=== PATIENT | male | born 1955 | race Two or more races ===

== ENCOUNTER 2018-04-02 13:37 | Emergency (ER) | payer MEDICARE, OTHER ==
[~2018-04-02] VITALS: Ht 160 cm; Wt 75.0 kg
[2018-04-02 13:55] VITALS: BP 140/53
[2018-04-02] MEDS ORDERED: acetaminophen 325mg tablet PO ONE (15:15)
[2018-04-02] MEDS ORDERED: bacitracin 15gm ointment TP ONE (15:15)
[2018-04-02] MEDS ORDERED: TETanus/Pertussis (Acell)/Diphther VAC/PF (Tdap-Adult) 0.5ml syringe IM ONE (15:15)
== END 2018-04-02 16:52 | disposition home or self-care (01) ==
LOC: ER 13:38
DX: S61.210A Laceration without foreign body of right index finger without damage to nail, initial encounter (principal); S61.212A Laceration without foreign body of right middle finger without damage to nail, initial encounter; S61.214A Laceration without foreign body of right ring finger without damage to nail, initial encounter; W27.8XXA Contact with other nonpowered hand tool, initial encounter; S61.216A Laceration without foreign body of right little finger without damage to nail, initial encounter; Z86.73 Personal history of transient ischemic attack (TIA), and cerebral infarction without residual deficits; Y93.89 Activity, other specified; Y92.89 Other specified places as the place of occurrence of the external cause; Y99.9 Unspecified external cause status
CPT/HCPCS: 12002; 90471; 90715; 99284

== ENCOUNTER 2018-12-07 06:53 | Emergency (ER) | payer MEDICARE ==
[~2018-12-07] VITALS: Ht 172.7 cm; Wt 79.8 kg
--- NOTE | 2018-12-07 07:07 | NUR ---
PT BEING CHANGED INTO GOWN, ULTRASOUND MACHINE PLACED AT BEDSIDE FOR FAST EXAM, DR TORRES AWARE OF PT.
[2018-12-07] MEDS ORDERED: normal saline 1000ML IV soln IVB ONE ×2 (07:10→10:05)
[2018-12-07] MEDS ORDERED: iohexol 300mg/ml 100ml inj. ONE (07:13)
--- NOTE | 2018-12-07 07:14 | NUR ---
Verbal order obtained from Dr. Nguyen for 4 mg IV zofran once now and 4 mg IV morphine once now. Will place order per MD request.
[2018-12-07] MEDS ORDERED: ondansetron/PF 4mg/2ml inj IV ONE (07:15)
[2018-12-07] MEDS ORDERED: morphine 4 MG/ML inj SYRINge IV ONE (07:15)
[2018-12-07 07:36] LABS: BASOPHILS % (AUTO) 0.2 % (0-1); EOSINOPHILS % (AUTO) 0.3 % (0-6); HEMATOCRIT 37.1 % (42.0-52.0); HEMOGLOBIN 12.4 g/dl (14.0-17.9); LYMPHOCYTES # (AUTO) 0.7 X10'3 (1.1-4.8); LYMPHOCYTES % (AUTO) 5.5 % (21-51); MEAN CORPUSCULAR HEMOGLOBIN 29.9 PG (27.0-31.0); MEAN CORPUSCULAR HGB CONC 33.3 g/dL (33.0-36.5); MEAN CORPUSCULAR VOLUME 89.7 FL (78-98); MEAN PLATELET VOLUME 7.1 FL (7.4-10.4); MONOCYTES # (AUTO) 0.3 X10'3 (0-0.9); MONOCYTES % (AUTO) 2.3 % (2-12); NEUTROPHILS # (AUTO) 12.2 X10'3 (1.8-7.7); NEUTROPHILS % (AUTO) 91.7 % (42-75); PLATELET COUNT 310 X10'3 (140-440); RED BLOOD COUNT 4.14 X10'6 (4.70-6.10); RED CELL DISTRIBUTION WIDTH 13.9 % (11.5-14.5); WHITE BLOOD COUNT 13.4 X10'3 (4.5-11.0)
--- NOTE | 2018-12-07 07:42 | NUR ---
pt back from ct pt stable waiting for results to clear from [facility]
--- NOTE | 2018-12-07 07:46 | NUR ---
PT REPORTS LOWER ABD AND GROIN PAIN LESSENED WITH MORPHINE BUT PT STILL REPORTS 10/10 EPIGASTRIC ABD PAIN, DR TORRES INFORMED, VERBAL ORDER 75 MCG FENTANYL IV ONCE NOW.
[2018-12-07 07:47] LABS: PARTIAL THROMBOPLASTIN TIME 24 SECONDS (22-32)
[2018-12-07 07:49] LABS: ALANINE AMINOTRANSFERASE 25 U/L (12-78); ALBUMIN 3.1 G/DL (3.4-5.0); ALBUMIN/GLOBULIN RATIO 0.9 (1.1-1.5); ALKALINE PHOSPHATASE 58 IU/L (46-116); ANION GAP 7 (8-16); ASPARTATE AMINO TRANSFERASE 15 U/L (10-37); BILIRUBIN,TOTAL 0.7 MG/DL (0.1-1.0); BLOOD UREA NITROGEN 11 MG/DL (7-18); BUN/CREATININE RATIO 12.4 (5.4-32.0); CALCIUM 8.5 MG/DL (8.5-10.1); CHLORIDE 107 MMOL/L (99-107); CREATININE 0.89 MG/DL (0.60-1.10); GLUCOSE 149 MG/DL (70-104); LIPASE 111 U/L (73-393); POTASSIUM 3.3 MMOL/L (3.5-5.1); SODIUM 141 MMOL/L (135-145); TOTAL CARBON DIOXIDE 26.8 MMOL/L (24-32); TOTAL PROTEIN 6.7 G/DL (6.4-8.2); eGFR 86 ML/MIN
[2018-12-07] MEDS ORDERED: fentaNYL/PF 50MCG/1 ML 2ML syringe IV ONE (07:50)
--- NOTE | 2018-12-07 07:50 | NUR ---
DR TORRES MADE AWARE OF PT RECENT CARDIAC WORKUP WITH DR ELLIS DUE TO DIZZINESS AND LOW HEART RATE, PT HAD STRESS TEST, CAROTID US, AND ECHOCARDIOGRAM THAT ALL RESULTED WNL PER PT FAMILY.
--- NOTE | 2018-12-07 08:00 | NUR ---
iv fluids finshed dr joseph waiting for ct report to clear trauma status
--- NOTE | 2018-12-07 08:06 | NUR ---
has hematoma R groin but reports that it did not happen today
--- NOTE | 2018-12-07 08:30 | NUR ---
DR TORRES AT BEDSIDE FOR RE-EVALUTION AND DISCUSSION OF DIAGNOSTIC TEST RESULTS, AWARE OF PT RECENT SBP 101 TWICE AND MOST RECENT SBP 98, STATES PT CAN GO HOME WHEN BP IS >100, PT TO GO HOME WITH PAIN MEDS, ICE AND REST DISCUSSED WITH PT AND PT FAMILY AT BEDSIDE.
[2018-12-07] MEDS ORDERED: HYDR-4353 PO (08:41)
[2018-12-07] MEDS ORDERED: HYDROcodone/acetaminophen 10/325mg tab PO ONE (08:45)
--- NOTE | 2018-12-07 09:29 | NUR ---
PT REPORTS STILL HAVE ABD PAIN / REPORTS IT FEELS LIKE A MUSCLE SPASM, DR TORRES INFORMED PT CAN NOT URINATE AND WILL BLADDER SCAN PT, DR TORRES INFORMED AND ASKED IF WANTS TO GIVE PT VALIUM, DR TORRES STATES NO AND PT IS READY FOR DISCHARGE AND CAN GO HOME.
--- NOTE | 2018-12-07 09:44 | NUR ---
DR TORRES CALLED TO PT BEDSIDE PER PT FAMILY REQUEST DUE TO PT PAIN AND DIFFICULTY BREATHING, DR TORRES AT BEDSIDE NOW.
[2018-12-07] MEDS ORDERED: HYDROmorphone 1 mg/ml syringe IV ONE (09:50)
--- NOTE | 2018-12-07 10:16 | NUR ---
PT WAS SITTING UP AT BEDSIDE AND HAD RECEIVED ASSISTANCE FROM FAMILY TO CHANGE CLOTHES, PT HAS BLOOD PRESSURE WHILE SITTING ON STOOL AT 0956 89/46, AND 0957 97/47, PT PLACED BACK IN BED AND BLOOD PRESSURE AT 0959 110/56 WHEN LYING DOWN AND RECEIVING 1 MG IV DIALUDID PER ORDERS, PT IS ALSO RECEIVING ANOTHER 1 LITER NS BOLUS PER ORDERS FROM DR TORRES AFTER REPORTING PT BP WHEN SITTING UP.
[2018-12-07 10:45] VITALS: BP 129/69
== END 2018-12-07 10:54 | disposition home or self-care (01) ==
LOC: ER 06:54 → CANBEDREQ 08:39 → ER 10:54
DX: S30.1XXA Contusion of abdominal wall, initial encounter (principal); Z79.899 Other long term (current) drug therapy; Z86.73 Personal history of transient ischemic attack (TIA), and cerebral infarction without residual deficits; W55.12XA Struck by horse, initial encounter; Y93.89 Activity, other specified; Y92.89 Other specified places as the place of occurrence of the external cause; Y99.8 Other external cause status
CPT/HCPCS: 36415; 71045; 74177; 80053; 83690; 85025; 85610; 85730; 96374; 96375; 99284; J1170; J2270; J2405; J3010; J7030; Q9967

== ENCOUNTER 2023-08-27 22:47 | Emergency (ER) | payer MEDICARE, MEDICAID ==
[~2023-08-27] VITALS: Ht 165.1 cm; Wt 60.8 kg
[2023-08-27 23:48] LABS: HEMOGLOBIN 13.2 g/dl (14.0-17.9); RED CELL DISTRIBUTION WIDTH 14.3 % (11.5-14.5)
[2023-08-27] MEDS: ondansetron/PF 4mg/2ml inj IV ONE (23:49)
[2023-08-27 23:50] LABS: BASOPHILS % (AUTO) 0.1 % (0-1); EOSINOPHILS % (AUTO) 0 % (0-6); HEMATOCRIT 39.3 % (42.0-52.0); LYMPHOCYTES # (AUTO) 0.6 X10'3 (1.1-4.8); LYMPHOCYTES % (AUTO) 3.5 % (21-51); MEAN CORPUSCULAR HEMOGLOBIN 29.6 PG (27.0-31.0); MEAN CORPUSCULAR HGB CONC 33.7 g/dL (33.0-36.5); MEAN PLATELET VOLUME 7.4 FL (7.4-10.4); MONOCYTES # (AUTO) 0.7 X10'3 (0-0.9); MONOCYTES % (AUTO) 4.4 % (2-12); PLATELET COUNT 223 X10'3 (140-440); RED BLOOD COUNT 4.46 X10'6 (4.70-6.10); WHITE BLOOD COUNT 16.4 X10'3 (4.5-11.0)
[2023-08-27 23:59] LABS: ANION GAP 12 (8-16); BLOOD UREA NITROGEN 12 MG/DL (7-18); BUN/CREATININE RATIO 10.3 (10.0-20.0); CALCIUM 8.8 MG/DL (8.5-10.1); CHLORIDE 104 MMOL/L (99-107); CREATININE 1.16 MG/DL (0.60-1.10); GLUCOSE 180 MG/DL (70-104); SODIUM 141 MMOL/L (135-145); TOTAL CARBON DIOXIDE 24.6 MMOL/L (24-32); eCRCL 53 ML/MIN; eGFR 63 ML/MIN
[2023-08-28] MEDS: ceFAZolin/D5W- 1GM premix 50 ML IV ONE (00:25)
[2023-08-28] MEDS: TETanus/Pertussis (Acell)/Diphther VAC/PF (Tdap-Adult) 0.5ml syringe IMVAC ONE (00:31)
[2023-08-28] MEDS: morphine 4 MG/ML inj SYRINge IV ONE (00:48)
[2023-08-28 02:00] VITALS: BP 114/56; PULSE 59; RESP 16; TEMP 98.3; O2SAT 98
== END 2023-08-28 03:05 | disposition short-term general hospital (02) ==
LOC: ER 22:47
DX: S02.32XB Fracture of orbital floor, left side, initial encounter for open fracture (principal); S02.40DB Maxillary fracture, left side, initial encounter for open fracture; S92.252B Displaced fracture of navicular [scaphoid] of left foot, initial encounter for open fracture; S02.842B Fracture of lateral orbital wall, left side, initial encounter for open fracture; S02.19XB Other fracture of base of skull, initial encounter for open fracture; V80.010A Animal-rider injured by fall from or being thrown from horse in noncollision accident, initial encounter; Y93.89 Activity, other specified; Y92.89 Other specified places as the place of occurrence of the external cause; Y99.8 Other external cause status
CPT/HCPCS: 36415; 70450; 71250; 72125; 74176; 80048; 84484; 85025; 90715; 96365; 96375; 99291; G0008; J0690; J2270; J2405; 90471